=== PATIENT | female | born 1975 | race African-American/Black ===

== ENCOUNTER 2018-05-05 22:24 | Emergency (ER) | payer OTHER, MEDICAID, SELFPAY ==
--- NOTE | 2018-05-05 22:26 | ED.GENADULT ---
HPI - General Adult General Chief complaint: Recheck/Abnormal Lab/Rx Stated complaint: High Blood Pressre, Off Meds x 2Months,Headache Time Seen by Provider: 05/05/18 22:26 Source: patient Mode of arrival: ambulatory Limitations: no limitations History of Present Illness HPI narrative: 42-year-old female with history of diabetes on insulin also hypertension here for evaluation because she has been out of her hypertension medicines for 2 months. She states that she had a change in her primary doctor and has a scheduled appointment in 3 weeks however has not had her medicines in 2 months. She does have enough insulin however does not have a hydrochlorothiazide and lisinopril. She states that when her blood pressure gets elevated she has a headache and vision changes. She states that this has been going on for some time now. Just states the 1 her blood pressure gets elevated she has chest pain. She is not having any post symptoms currently. She is here for a medication refill. Related Data Home Medications Medication Instructions Recorded Confirmed HYDROCHLOROTHIAZIDE (#ESIDRIX) 25 mg PO Q DAY #0 06/04/11 insulin aspart U-100 [Novolog 0 unit SQ QIDACHS #0 units 06/29/13 Flexpen U-100 Insulin] insulin glargine [Lantus Solostar 0 unit SQ QDAY #3 ml 06/29/13 U-100 Insulin] Previous Rx's Medication Instructions Recorded tramadol 50 mg PO Q6HP PRN #30 tab 04/14/16 rizatriptan [Maxalt-M[employer]T [employer] OPERATOR] 5 mg PO Q2HP PRN #10 tab 05/31/17 tramadol 50 mg PO Q6HP PRN #20 tab 05/31/17 azithromycin [Zithromax] 250 mg PO SEE INSTRUCTIONS #6 tab 12/05/17 hydrochlorothiazide 25 mg PO DAILY #60 tab 05/05/18 lisinopril 20 mg PO DAILY #60 tab 05/05/18 Allergies Allergy/AdvReac Type Severity Reaction Status Date / Time hydrocodone [HYDROCODONE] Allergy Mild ITCHING Verified 05/05/18 22:44 Review of Systems Constitutional Denies fever(s) and Reports headache(s) Eyes Comments: Blurry vision ENT Ears, Nose, Mouth, and Throat: Denies vertigo and Reports headache(s) Cardiovascular Reports chest pain, Denies syncope, Denies pedal edema, Denies palpitations and Denies dyspnea Respiratory Denies dyspnea Gastrointestinal Gastrointestinal: Denies abdominal pain, Denies constipation, Denies nausea and Denies vomiting Genitourinary Denies dysuria Integumentary/Breasts Denies pruritus and Denies rash Neurologic Denies confusion, Denies vertigo, Denies syncope and Reports headache(s) Psychiatric Denies confusion Endocrine Denies palpitations [facility] Medical History Diabetes (Acute) Hypertension (Acute) Surgical History No pertinent past surgical history (Acute) Social History Smoking Status: Never smoker Exam Initial Vital Signs Initial Vital Signs: Vital Signs Temperature 98.6 F 05/05/18 22:40 Pulse Rate 82 05/05/18 22:40 Respiratory Rate 15 05/05/18 22:40 Blood Pressure 150/84 H 05/05/18 22:40 Pulse Oximetry 100 05/05/18 22:40 Const General: cooperative, healthy appearing, comfortable, well developed, well groomed and No acute distress Orientation: alert, awake and oriented x3 HENMT Head: normal to inspection and normocephalic Resp Effort & Inspection: normal respiratory effort Cardio Rate: regular rate Skin Lesions: no lesions Rashes: no rashes Neuro General: alert, awake and oriented x3 Cognition: normal cognition Speech: speech normal Gait: normal gait Extrem General: normal to inspection Psych Appearance: grossly normal and well kempt Course Orders Ordered: Discontinued Medications Hydrochlorothiazide (Hydrochlorothiazide) 25 mg PO NOW ONE Stop: 05/05/18 23:00 Lisinopril (Zestril) 20 mg PO NOW ONE Stop: 05/05/18 23:00 Vital Signs - 8 hr 05/05/18 22:40 Temperature 98.6 F Pulse Rate 82 Respiratory Rate 15 Blood Pressure 150/84 H Pulse Oximetry 100 Medical Decision Making [facility] Narrative Medical decision making narrative: Patient is currently asymptomatic. Will refill her hydrochlorothiazide and lisinopril. She was instructed she did need to keep her scheduled follow-up appointment with her primary doctor in 3 weeks. She was given return precautions. She expressed understanding and agreement with plan. Discharge Plan Departure Patient Disposition: Home Clinical Impression: Hypertension Instructions: Essential Hypertension Activity Restrictions/Additional Instructions: Take your medication as directed. Continue to take your blood sugar and use your insulin as directed. Keep all of your scheduled medical appointments. Return to the emergency department for any new or worsening symptoms. Prescriptions: New lisinopril 20 mg tablet 20 mg PO DAILY Qty: 60 RF: 0 hydrochlorothiazide 25 mg tablet 25 mg PO DAILY Qty: 60 RF: 0 No Action HYDROCHLOROTHIAZIDE (#ESIDRIX) 25 mg PO Q DAY Qty: 0 RF: 0 insulin aspart U-100 [Novolog Flexpen U-100 Insulin] 100 UNIT/1 ML insulin pen SQ QIDACHS Qty: 0 RF: 0 insulin glargine [Lantus Solostar U-100 Insulin] 100 UNIT/1 ML insulin pen SQ QDAY Qty: 3 RF: 0 tramadol 50 MG tablet 50 mg PO Q6HP PRNQty: 30 RF: 0 tramadol 50 MG tablet 50 mg PO Q6HP PRNQty: 20 RF: 0 rizatriptan [Maxalt-M[employer]AG OPERATOR] 5 MG tablet,disintegrating 5 mg PO Q2HP PRNQty: 10 RF: 0 azithromycin [Zithromax] 250 MG tablet 250 mg PO SEE INSTRUCTIONS Qty: 6 RF: 0
[2018-05-05 22:40] VITALS: BP 150/84; PULSE 82; RESP 15; TEMP 37; O2SAT 100; BMI 35.1
[2018-05-05 23:45] VITALS: BP 150/100; PULSE 87
[2018-05-05] MEDS: LISINOPRIL 20 MG TABLET PO (23:45)
[2018-05-05] MEDS: hydroCHLOROthiazide 25 MG TABLET PO (23:45)
[2018-05-05 23:59] VITALS: BP 158/100; PULSE 89; RESP 15; TEMP 36.8; O2SAT 98
== END 2018-05-06 | disposition home or self-care (01) ==
PROVIDERS: Emergency Provider Emergency Medicine; Family Provider Physician Assistant Medical; PCP Physician Assistant Medical
DX: I10 Essential (primary) hypertension (principal)
CPT/HCPCS: 99282; 99283

== ENCOUNTER 2018-07-05 10:03 | Emergency (ER) | payer OTHER, MEDICAID, SELFPAY ==
[2018-07-05 10:19] VITALS: BP 157/89; PULSE 66; RESP 18; TEMP 36.6; O2SAT 100; BMI 31.0
--- NOTE | 2018-07-05 10:32 | ED.BACK ---
HPI - Back Pain/Injury General Chief Complaint: Back Pain/Injury Stated Complaint: SWOLLEN, BACK SIDE PAIN Time Seen by Provider: 07/05/18 10:16 Source: patient Mode of arrival: ambulatory Limitations: no limitations History of Present Illness HPI Narrative: Patient is a 43-year-old female with a history of hypertension who I evaluated here in the emergency department in the past. She states that after her last visit here she did seek a primary care doctor. She states she filled out all the paperwork and they informed her that they were not taking any new patients. She states she has not been on her hydrochlorothiazide for the past 4 days. She states that for the past day or so she has had bilateral lower back pain no loss of bowel or bladder. No rashes. No urinary symptoms. She also states she had lower extremity swelling. She also states that it was noticed that she had swelling around her eyes this morning. She states that it feels like her blood pressure is elevated. She has been taking her insulin. Related Data Home Medications Medication Instructions Recorded Confirmed HYDROCHLOROTHIAZIDE (#ESIDRIX) 25 mg PO Q DAY #0 06/04/11 insulin aspart U-100 [Novolog 0 unit SQ QIDACHS #0 units 06/29/13 Flexpen U-100 Insulin] insulin glargine [Lantus Solostar 0 unit SQ QDAY #3 ml 06/29/13 U-100 Insulin] Previous Rx's Medication Instructions Recorded tramadol 50 mg PO Q6HP PRN #30 tab 04/14/16 rizatriptan [Maxalt-SURVEY SUPERINTENDENT] 5 mg PO Q2HP PRN #10 tab 05/31/17 tramadol 50 mg PO Q6HP PRN #20 tab 05/31/17 azithromycin [Zithromax] 250 mg PO SEE INSTRUCTIONS #6 tab 12/05/17 hydrochlorothiazide 25 mg PO DAILY #60 tab 05/05/18 lisinopril 20 mg PO DAILY #60 tab 05/05/18 hydrochlorothiazide 25 mg PO DAILY #90 tab 07/05/18 lisinopril 20 mg PO DAILY #90 tab 07/05/18 Allergies Allergy/AdvReac Type Severity Reaction Status Date / Time hydrocodone [HYDROCODONE] Allergy Mild ITCHING Verified 07/05/18 10:19 Review of Systems Constitutional Denies fatigue, Denies fever(s) and Reports headache(s) Eyes Denies loss of vision ENT Ears, Nose, Mouth, and Throat: Denies vertigo, Denies dizziness and Reports headache(s) Cardiovascular Denies chest pain, Denies syncope and Denies dyspnea Respiratory Denies dyspnea Gastrointestinal Gastrointestinal: Denies abdominal pain, Denies nausea and Denies vomiting Musculoskeletal Reports back pain, Denies myalgias and Denies arthralgias Integumentary/Breasts Denies lesions and Denies rash Neurologic Denies vertigo, Denies dizziness, Denies syncope, Reports headache(s) and Denies loss of vision Endocrine Denies fatigue Hematologic/Lymphatic Denies easy bleeding and Denies easy bruising [facility] Medical History Diabetes (Acute) Hypertension (Acute) Surgical History No pertinent past surgical history (Acute) Social History Smoking Status: Never smoker Exam Initial Vital Signs Initial Vital Signs: Vital Signs Temperature 98 F 07/05/18 10:19 Pulse Rate 66 07/05/18 10:19 Respiratory Rate 18 07/05/18 10:19 Blood Pressure 157/89 H 07/05/18 10:19 Pulse Oximetry 100 07/05/18 10:19 Const General: cooperative, healthy appearing, comfortable, well developed, well groomed and No acute distress Orientation: alert, awake and oriented x3 HENMT Head: normal to inspection and normocephalic Resp Effort & Inspection: normal respiratory effort Auscultation: clear to auscultation bilaterally Cardio Rate: regular rate Rhythm: regular rhythm GI Inspection: non-distended Palpation: soft and No firm Back/Spine/Pelvis Back: back tenderness and No CVA tenderness Skin Lesions: no lesions Rashes: no rashes Neuro General: alert, awake and oriented x3 Extrem General: normal to inspection and capillary refill normal Psych Appearance: grossly normal and well kempt Course Vital Signs - 8 hr 07/05/18 10:19 Temperature 98 F Pulse Rate 66 Respiratory Rate 18 Blood Pressure 157/89 H Pulse Oximetry 100 MDM - Back Pain/Injury MDM Narrative Medical decision making narrative: Patient has no red flag symptoms concerning for cauda equina. I do suspect that her lower extremity swelling is due to the fact that she has not been on her hydrochlorothiazide for the past 4 days. No signs of urinary tract infection. No fevers. Will refill her medications. Will hold on further workup for now. She was given information about local groups in the area that are accepting new patients. She was given return precautions. She expressed understanding and agreement with plan. Discharge Plan Departure Patient Disposition: Home Clinical Impression: Lower back pain, Hypertension, Edema Instructions: DI for Dependent Edema, Activity May Be Better then Rest for Low Back Pain Recovery Activity Restrictions/Additional Instructions: Would recommend that you contact the primary doctor's here in this area to establish care. If her symptoms worsen, change redevelop any new symptoms please return to the emergency department. Prescriptions: New lisinopril 20 mg tablet 20 mg PO DAILY Qty: 90 RF: 0 hydrochlorothiazide 25 mg tablet 25 mg PO DAILY Qty: 90 RF: 0 No Action HYDROCHLOROTHIAZIDE (#ESIDRIX) 25 mg PO Q DAY Qty: 0 RF: 0 insulin aspart U-100 [Novolog Flexpen U-100 Insulin] 100 UNIT/1 ML insulin pen SQ QIDACHS Qty: 0 RF: 0 insulin glargine [Lantus Solostar U-100 Insulin] 100 UNIT/1 ML insulin pen SQ QDAY Qty: 3 RF: 0 tramadol 50 MG tablet 50 mg PO Q6HP PRNQty: 30 RF: 0 tramadol 50 MG tablet 50 mg PO Q6HP PRNQty: 20 RF: 0 rizatriptan [Maxalt-SURVEY SUPERINTENDENT] 5 MG tablet,disintegrating 5 mg PO Q2HP PRNQty: 10 RF: 0 azithromycin [Zithromax] 250 MG tablet 250 mg PO SEE INSTRUCTIONS Qty: 6 RF: 0 lisinopril 20 mg tablet 20 mg PO DAILY Qty: 60 RF: 0 hydrochlorothiazide 25 mg tablet 25 mg PO DAILY Qty: 60 RF: 0
[2018-07-05 11:10] VITALS: BP 171/94
[2018-07-05 11:51] VITALS: BP 171/94; PULSE 66; RESP 20; O2SAT 100
== END 2018-07-05 11:30 | disposition home or self-care (01) ==
PROVIDERS: Emergency Provider Emergency Medicine; Family Provider Physician Assistant Medical; PCP Physician Assistant Medical
DX: I10 Essential (primary) hypertension (principal); M54.9 Dorsalgia, unspecified; R60.9 Edema, unspecified
CPT/HCPCS: 99282

== ENCOUNTER 2018-10-25 15:27 | Emergency (ER) | payer OTHER, MEDICAID, SELFPAY ==
[2018-10-25 15:33] VITALS: BP 176/101; PULSE 103; RESP 20; TEMP 37.8; O2SAT 100; BMI 31.4
[2018-10-25 15:50] LABS: Appearance Urine UA CLOUDY; Bilirubin Urine UA NEGATIVE (NEGATIVE); Color Urine UA YELLOW; Glucose Urine UA NEGATIVE (Negative); Ketones Urine UA NEGATIVE (NEGATIVE); Leukocyte Esterase Urine UA TRACE (NEGATIVE); Nitrite Urine UA NEGATIVE (Negative); Occult Blood Urine UA 3+ (Negative); Protein Urine UA 2+ (Negative); Urobilinogen Urine UA 0.2 E.U./dL (0.2); pH Urine UA 6.5 (4.5-8.0)
[2018-10-25 16:04] LABS: Amorphous Sediment Urine 1+; Bacteria Urine Few (2-10); RBC Urine 30-100/HPF (0-5/HPF); Squamous Epithelial Cell Urine 1-5 /HPF; WBC Urine 1-5/HPF (0-5/HPF)
[2018-10-25 16:05] LABS: Culture Indicated Urine Specimen Cultured
[2018-10-25] MEDS: ONDANSETRON 4 MG/2 ML INJ IV (16:05)
[2018-10-25] MEDS: KETOROLAC 60 MG/2 ML VIAL 30 MG IV (16:19)
[2018-10-25] MEDS: SODIUM CHLORIDE 0.9% 1,000 ML 1000 ML IV (16:19)
[2018-10-25 16:23] LABS: Add Manual Diff / Slide Review NO; Basophils Absolute Auto 100 /uL (0-100); Basophils Percent Auto 0.8 % (0-2); Eosinophils Absolute Auto 0 /uL (0-450); Eosinophils Percent Auto 0.4 % (2-4); Hematocrit 26.3 % (36-46); Hemoglobin 8.3 g/dL (12.0-16.0); Lymphocytes Absolute Auto 1700 /uL (1100-4500); Lymphocytes Percent Auto 13.8 % (25-40); Mean Corpuscular HGB Conc 31.5 % (30-36); Mean Corpuscular Hemoglobin 22.3 PG (26-34); Mean Corpuscular Volume 70.7 fL (80-100); Monocytes Absolute Auto 600 /uL (0-900); Monocytes Percent Auto 5.2 % (3-14); Neutrophils Absolute Auto 9700 /uL (1500-7000); Neutrophils Percent Auto 79.8 % (50-75); Platelet Count 290 X10^3/uL (150-400); Red Blood Cell Count 3.72 X10^6/uL (4.0-5.2); Red Cell Distribution Width 17.6 % (11.6-14.8); White Blood Cell Count 12.1 X10^3/uL (4.5-11.0)
[2018-10-25 16:31] LABS: Alanine Aminotransferase 18 IU/L (9-52); Albumin 4.3 g/dL (3.5-5.0); Albumin Globulin Ratio 1.2 (1.0-2.8); Alkaline Phosphatase 67 U/L (38-126); Aspartate Aminotransferase 22 IU/L (14-36); BUN Creatinine Ratio 11.8 (6-22); Bilirubin Total 0.5 mg/dL (0.2-1.3); Blood Urea Nitrogen 13 mg/dL (7-17); Calcium 9.4 mg/dL (8.4-10.2); Carbon Dioxide 25 mmol/L (22-32); Chloride 104 mmol/L (98-107); Estimated Glomerular Filt Rate 54.2 mL/min (>60); Globulin 3.7 g/dL (1.7-4.1); Glucose 109 mg/dL (70-100); HEMOLYSIS 17 (0-50); Potassium 4.2 mmol/L (3.4-5.1); Sodium 139 mmol/L (137-145)
[2018-10-25] MEDS: CEFTRIAXONE 1 GM/50 ML FROZ.PIGGY IV (17:04)
--- NOTE | 2018-10-25 17:45 | ED_ITS ---
HPI - Abdominal Pain General Chief Complaint: Abdominal Pain Stated Complaint: KIDNEY PAIN Time Seen by Provider: 10/25/18 15:39 Source: patient and family Mode of arrival: ambulatory Limitations: no limitations History of Present Illness HPI narrative: 43-year-old female, nonsmoker with history of hypertension diabetes presents with sudden onset left flank pain with radiation into her left abdomen. She has had vomiting associated with significant pain as well as hematuria. She does have a history of kidney stones and states this feels similar. She denies fever or shaking chills. She denies runny nose, sore throat or cough. She has episodes of significant pain that come and go without any obvious provocation or palliation. MD complaint: flank pain Onset (ago): day(s) Pain Consistency: constant Quality: stabbing Radiation: LLQ Relieving factors: nothing Exacerbating factors: nothing Associated symptoms: nausea and vomiting Related Data Home Medications Medication Instructions Recorded Confirmed insulin aspart U-100 [Novolog 0 unit SQ QIDACHS #0 units 06/29/13 07/05/18 Flexpen U-100 Insulin] insulin glargine [Lantus Solostar 0 unit SQ QDAY #3 ml 06/29/13 07/05/18 U-100 Insulin] rizatriptan [Maxalt-DRAFTER DIRECTIONAL SURVEY] 5 mg PO Q2HP PRN 07/05/18 07/05/18 Previous Rx's Medication Instructions Recorded hydrochlorothiazide 25 mg PO DAILY #90 tab 07/05/18 lisinopril 20 mg PO DAILY #90 tab 07/05/18 cephalexin [Keflex] 500 mg PO QID 14 Days #56 cap 10/25/18 ondansetron 4 mg PO TID-QID PRN #10 tab 10/25/18 oxycodone 5 mg PO Q4-6H PRN #10 tab 10/25/18 tamsulosin [Flomax] 0.4 mg PO DAILY #10 cap 10/25/18 Allergies Allergy/AdvReac Type Severity Reaction Status Date / Time hydrocodone [HYDROCODONE] Allergy Mild ITCHING Verified 10/25/18 15:33 Review of Systems Constitutional Denies chills, Denies fever(s), Denies lethargy and Denies weakness Eyes Denies change in vision, Denies eye discharge, Denies irritation and Denies loss of vision ENT Ears, Nose, Mouth, and Throat: Denies change in voice, Denies neck pain and Denies sore throat Cardiovascular Denies chest pain, Denies irregular heart rhythm, Denies lightheadedness, Denies palpitations, Denies dyspnea, Denies dyspnea on exertion and Denies orthopnea Respiratory Denies cough, Denies dyspnea, Denies dyspnea on exertion and Denies wheezing Gastrointestinal Gastrointestinal: Reports abdominal pain, Denies change in bowel habits, Denies diarrhea, Denies nausea and Denies vomiting Genitourinary Reports hematuria, Denies flank pain, Denies urinary incontinence and Denies urinary urgency Musculoskeletal Denies neck pain Integumentary/Breasts Denies pruritus, Denies erythema, Denies rash and Denies wounds Neurologic Denies confusion, Denies loss of vision and Denies weakness Psychiatric Denies anxiety, Denies confusion, Denies depression, Denies homicidal ideation and Denies suicidal ideation Endocrine Denies palpitations Hematologic/Lymphatic Denies easy bruising Allergic/Immunologic Denies wheezing [facility] Medical History Diabetes (Acute) Hypertension (Acute) Surgical History No pertinent past surgical history (Acute) Social History Smoking Status: Never smoker Social History Smoking Status: Never smoker Exam Narrative Exam Narrative: GENERAL: 43-year-old female, obviously uncomfortable HEAD: Atraumatic. Normocephalic. No temporal or scalp tenderness. EYES: Pupils equal round and reactive. Extraocular motions intact. No scleral icterus. No injection or drainage. ENT: Nose without bleeding, purulent drainage or septal hematoma. Throat without erythema, tonsillar hypertrophy or exudate. Uvula midline. Airway patent. NECK: Trachea midline. No JVD or lymphadenopathy. Supple, nontender, no meningeal signs. CARDIOVASCULAR: Regular rate and rhythm without murmurs, gallops, or rubs. RESPIRATORY: Clear to auscultation. Breath sounds equal bilaterally. No wheezes , rales, or rhonchi. GASTROINTESTINAL: Abdomen soft, non-tender, nondistended. No hepato-splenomegaly , or palpable masses. No guarding. EXTREMITIES: No clubbing, cyanosis, or edema. No joint tenderness, effusion, or edema noted. BACK: Nontender without deformity or crepitance. No flank tenderness. NEURO: AOx3. SKIN: No rash or erythema. Initial Vital Signs Initial Vital Signs: Vital Signs Temperature 100.1 F H 10/25/18 15:33 Pulse Rate 103 H 10/25/18 15:33 Respiratory Rate 20 10/25/18 15:33 Blood Pressure 176/101 H 10/25/18 15:33 Pulse Oximetry 100 10/25/18 15:33 Course Orders Ordered: ED Orders 10/25/18 15:47 Urinalysis and Microscopic Stat Urine Culture Stat 10/25/18 16:10 Complete Blood Count AUTO DIFF Stat Comprehensive Metabolic Panel Stat Discontinued Medications Sodium Chloride (Normal Saline 0.9%) 1,000 mls @ 1,000 mls/hr IV BOLUS ONE Stop: 10/25/18 17:17 Last Infusion: 10/25/18 17:46 Dose: 0 mls/hr Admin: 10/25/18 16:19 Dose: 1,000 mls/hr Ceftriaxone Sodium/Dextrose (Rocephin) 1 gm in 50 mls @ 100 mls/hr IV NOW ONE Stop: 10/25/18 17:26 Last Infusion: 10/25/18 17:45 Dose: 0 mls/hr Admin: 10/25/18 17:04 Dose: 100 mls/hr Ketorolac Tromethamine (Toradol) 30 mg IV NOW ONE Stop: 10/25/18 16:19 Last Admin: 10/25/18 16:19 Dose: 30 mg Ondansetron HCl (Zofran) 4 mg IV NOW ONE Stop: 10/25/18 15:41 Last Admin: 10/25/18 16:05 Dose: 4 mg Oxycodone/Acetaminophen (Percocet 5/325) 1 tab PO NOW ONE Stop: 10/25/18 17:49 Last Admin: 10/25/18 17:51 Dose: 1 tab Reevaluation(s) Reevaluation #1: Patient feeling better after above-stated therapies Vital Signs - 8 hr 10/25/18 15:33 10/25/18 18:25 Temperature 100.1 F H Pulse Rate 103 H 88 Respiratory Rate 20 16 Blood Pressure 176/101 H Blood Pressure [Right Arm] 181/109 H Pulse Oximetry 100 100 MDM - Abdominal Pain Differential Diagnosis Differential diagnosis: Likely abdominal pain, calculus of kidney, constipation , endometriosis, gastroenteritis, pancreatitis and small bowel obstruction Medical Records Attestation: I reviewed the patient's medical records. Lab Data Attestation: I reviewed the patient's lab results. Result diagrams: 10/25/18 16:10 10/25/18 16:10 Lab Results 10/25/18 10/25/18 10/25/18 Range/Units 15:47 16:10 16:10 WBC 12.1 H (4.5-11.0) X10^3/uL RBC 3.72 L (4.0-5.2) X10^6/uL Hgb 8.3 L (12.0-16.0) g/dL Hct 26.3 L (36-46) % MCV 70.7 L (80-100) fL MCH 22.3 L (26-34) PG MCHC 31.5 (30-36) % RDW 17.6 H (11.6-14.8) % Plt Count 290 (150-400) X10^3/uL Neut % (Auto) 79.8 H (50-75) % Lymph % (Auto) 13.8 L (25-40) % [place] % (Auto) 5.2 (3-14) % Eos % (Auto) 0.4 L (2-4) % Baso % (Auto) 0.8 (0-2) % Neut # (Auto) 9700 H (5197-3102) /uL Lymph # (Auto) 1700 (4408-5531) /uL [place] # (Auto) 600 (0-900) /uL Eos # (Auto) 0 (0-450) /uL Baso # (Auto) 100 (0-100) /uL Sodium 139 (137-145) mmol/L Potassium 4.2 (3.4-5.1) mmol/L Chloride 104 (98-107) mmol/L Carbon Dioxide 25 (22-32) mmol/L BUN 13 (7-17) mg/dL Creatinine 1.10 H (0.52-1.04) mg/dL Estimated GFR 54.2 L (>60) mL/min BUN/Creatinine Ratio 11.8 (6-22) Glucose 109 H (70-100) mg/dL Calcium 9.4 (8.4-10.2) mg/dL Total Bilirubin 0.5 (0.2-1.3) mg/dL AST 22 (14-36) IU/L ALT 18 (9-52) IU/L Alkaline Phosphatase 67 (38-126) U/L Total Protein 8.0 (6.3-8.2) g/dL Albumin 4.3 (3.5-5.0) g/dL Globulin 3.7 (1.7-4.1) g/dL Albumin/Globulin Ratio 1.2 (1.0-2.8) Urine Color Yellow Urine Appearance Cloudy Urine pH 6.5 (4.5-8.0) Ur Specific [place] 1.010 (1.000-1.035) Urine Protein 2+ H (Negative) Urine Glucose (UA) Negative (Negative) g/dL Urine Ketones Negative (NEGATIVE) Urine Occult Blood 3+ H (Negative) Urine Nitrate Negative (Negative) Urine Bilirubin Negative (NEGATIVE) Urine Urobilinogen 0.2 (0.2) E.U./dL Ur Leukocyte Esterase Trace H (NEGATIVE) Urine RBC 30-100/hpf H (0-5/HPF) Urine WBC 1-5/hpf (0-5/HPF) Ur Squamous Epith Cells 1-5 /hpf Amorphous Sediment 1+ Urine Bacteria Few (2-10) H (None) Ur Culture Indicated? Specimen cultured MDM Narrative Medical decision making narrative: Multiple etiologies for patient's symptoms considered including: [Ureterolithiasis, pyelonephritis, versus other] Patient's symptoms improved or duration of stay with above-stated therapies. Findings and discharge diagnosis discussed with patient/family followed by verbalization of understanding Return precautions discussed with patient/family whom verbalize understanding. Discharge Plan Departure Patient Disposition: Home Clinical Impression: Ureterolithiasis Instructions: DI for Kidney Stones Activity Restrictions/Additional Instructions: *You have been diagnosed with [left flank pain, hematuria, likely kidney stone with possible UTI ] *What to do: *Take medications as directed *Follow up with your primary care provider in 2-3 days, call for an appointment. Let them know you were seen in the Emergency Department and that we ask that you be seen in follow up *Return to ER if you should have any new, worsening or concerning symptoms , such as [increased fever, shaking chills, increasing pain, persistent vomiting or other bothersome symptoms ] Prescriptions: New cephalexin [Keflex] 500 mg capsule 500 mg PO QID 14 Days Qty: 56 RF: 0 tamsulosin [Flomax] 0.4 mg capsule 0.4 mg PO DAILY Qty: 10 RF: 0 ondansetron 4 mg tablet,disintegrating 4 mg PO TID-QID PRN (Reason: nausea and vomiting) Qty: 10 RF: 0 oxycodone 5 mg tablet 5 mg PO Q4-6H PRN (Reason: pain) Qty: 10 RF: 0 No Action insulin aspart U-100 [Novolog Flexpen U-100 Insulin] 100 UNIT/1 ML insulin pen SQ QIDACHS Qty: 0 RF: 0 insulin glargine [Lantus Solostar U-100 Insulin] 100 UNIT/1 ML insulin pen SQ QDAY Qty: 3 RF: 0 lisinopril 20 mg tablet 20 mg PO DAILY Qty: 90 RF: 0 hydrochlorothiazide 25 mg tablet 25 mg PO DAILY Qty: 90 RF: 0 rizatriptan [Maxalt-DRAFTER DIRECTIONAL SURVEY] 5 MG tablet,disintegrating 5 mg PO Q2HP PRN (Reason: Migraine Headache) RF: 0
[2018-10-25] MEDS: OXYCODONE/ACETAMINOPHEN 5/325 TABLET 1 TAB PO (17:51)
[2018-10-25 18:25] VITALS: BP 181/109; PULSE 88; RESP 16; O2SAT 100
[2018-10-25 18:59] VITALS: BP 172/98; PULSE 85; RESP 16; O2SAT 99
== END 2018-10-25 19:04 | disposition home or self-care (01) ==
PROVIDERS: Emergency Provider Emergency Medicine; Family Provider Physician Assistant Medical; PCP Physician Assistant Medical
DX: N20.1 Calculus of ureter (principal)
CPT/HCPCS: 36591; 80053; 81001; 81015; 85025; 87086; 96361; 96365; 96375; 99283; 99284; J1885; J2405

== ENCOUNTER 2019-05-29 19:21 | Emergency (ER) | payer OTHER, MEDICAID, SELFPAY ==
[2019-05-29 19:26] VITALS: BP 129/79; PULSE 105; RESP 20; TEMP 36.9; O2SAT 100
[2019-05-29 20:12] LABS: Add Manual Diff / Slide Review NO; Basophils Absolute Auto 100 /uL (0-100); Basophils Percent Auto 0.9 % (0-2); Eosinophils Absolute Auto 100 /uL (0-450); Eosinophils Percent Auto 1.1 % (2-4); Hematocrit 25.9 % (36-46); Hemoglobin 8.1 g/dL (12.0-16.0); Lymphocytes Absolute Auto 2700 /uL (1100-4500); Lymphocytes Percent Auto 38.5 % (25-40); Mean Corpuscular HGB Conc 31.1 % (30-36); Mean Corpuscular Hemoglobin 22.4 PG (26-34); Mean Corpuscular Volume 71.9 fL (80-100); Monocytes Absolute Auto 400 /uL (0-900); Neutrophils Absolute Auto 3700 /uL (1500-7000); Neutrophils Percent Auto 53.5 % (50-75); Platelet Count 288 X10^3/uL (150-400); Red Cell Distribution Width 18.2 % (11.6-14.8)
--- NOTE | 2019-05-29 21:09 | ED_ITS ---
HPI - Weakness General Chief complaint: Weakness Stated complaint: WEAKNESS ANEMIA JAUNDICE Time Seen by Provider: 05/29/19 21:07 Source: patient and family Mode of arrival: ambulatory Limitations: no limitations History of Present Illness HPI Narrative: A 44-year-old female comes to the emergency department with co mplaint of weakness and history of anemia. Patient states they have not found the source. She has been following with Hematology. She has been started on iron 3 times daily but only been able to take it twice daily because she finds it nauseating. She is taking medications to help with constipation in this is been useful. She has not had any syncope but has felt lightheaded on occasion. She denies any chest pressure or shortness of breath. She has had some nausea but no vomiting. She states she felt a little yellow. Patient denies any issues with bowel movements, no black or bloody stools. She did start her period today and had some light spotting. She has not noticed any changes with urination. Patient is not have any swelling in her extremities. She did not want extensive workup today and requested just to CBC. Related Data Previous Rx's Medication Instructions Recorded glucometer #1 ea 11/17/18 lancets #360 each 11/17/18 miscellaneous medical supply #1 each 11/17/18 test strips #360 each 11/17/18 glucometer #1 ea 04/25/19 hydrochlorothiazide 25 mg tablet 25 mg PO DAILY #90 tab 04/25/19 lisinopril 40 mg tablet 40 mg PO DAILY #90 tab 04/25/19 ondansetron 4 mg disintegrating 4 mg PO TID-QID PRN #10 tab 04/25/19 tablet sennosides 8.6 mg tablet 17.2 mg PO DAILY #90 tab 04/25/19 ferrous gluconate 324 mg PO DAILY #30 tab 05/17/19 Allergies Allergy/AdvReac Type Severity Reaction Status Date / Time hydrocodone [HYDROCODONE] Allergy Mild ITCHING Verified 04/25/19 09:33 Review of Systems Review of Systems ROS Unobtainable: All systems reviewed & are unremarkable except as noted in HPI and below PFSH Medical History Anemia (Chronic) Chronic back pain (Chronic) Diabetes (Chronic) Eczema (Chronic) Headache (Chronic) Hypertension (Chronic) Kidney disease (Chronic) Kidney stones (Chronic) Migraines (Chronic) Sickle cell anemia (Chronic) Surgical History Anesthesia (Resolved) History of section (Resolved) History of cholecystectomy (Resolved) History of foot surgery (Resolved) No pertinent past surgical history (Acute) Family History (Updated 12/24/18 @ 20:11 by Shira Unger) Mother Cancer Heart disease Hypertension Stroke Grandfather Diabetes mellitus Heart disease Hypertension Hyperlipidemia Grandmother Stroke Family/Other Diabetes mellitus Hypertension Kidney disease Social History Smoking Status: Never smoker second hand exposure: No alcohol intake: current (wine, once and awhile) substance use type: does not use Social History Smoking Status: Never smoker second hand exposure: No alcohol intake: current (wine, once and awhile) substance use type: does not use Exam Narrative Exam Narrative: GENERAL: Alert and oriented x three, well-nourished, well- appearing female in no acute distress. HEENT: Head normocephalic, atraumatic, EOMI, pupils reactive, face symmetric, conjunctivae are pink, moist mucous membranes. No jaundice appreciated. NECK: Supple, full range of motion CARDIOVASCULAR: Regular rate and rhythm without murmurs, rubs or gallops. RESPIRATORY: Breath sounds equal bilaterally, no wheezes rales or rhonchi. ABDOMEN: Soft, nontender. Normoactive bowel sounds all 4 quadrants. No guarding or rebound, rigidity, no mass : No CVA tenderness EXTREMITIES: Normal range of motion, no clubbing or edema. Neurovascularly intact NEUROLOGICAL: Cranial nerves II through XII grossly intact. Moving all extremities SKIN: Warm, dry, no petechiae, no rashes or lesions. Initial Vital Signs Initial Vital Signs: Vital Signs Temperature 98.4 F 05/29/19 19:26 Pulse Rate 105 H 05/29/19 19:26 Respiratory Rate 20 05/29/19 19:26 Blood Pressure 129/79 05/29/19 19:26 Pulse Oximetry 100 05/29/19 19:26 Course Orders Ordered: ED Orders 05/29/19 20:06 CBC Auto Diff [Complete Blood Count AUTO DIFF] Stat Vital Signs Vital signs: Vital Signs - 8 hr 05/29/19 19:26 Temperature 98.4 F Pulse Rate 105 H Respiratory Rate 20 Blood Pressure 129/79 Pulse Oximetry 100 MDM - Weakness Lab Data Attestation: I reviewed the patient's lab results. Result diagrams: 05/29/19 20:06 Labs: Lab Results 05/29/19 Range/Units 20:06 WBC 7.0 (4.5-11.0) X10^3/uL RBC 3.60 L (4.0-5.2) X10^6/uL Hgb 8.1 L (12.0-16.0) g/dL Hct 25.9 L (36-46) % MCV 71.9 L (80-100) fL MCH 22.4 L (26-34) PG MCHC 31.1 (30-36) % RDW 18.2 H (11.6-14.8) % Plt Count 288 (150-400) X10^3/uL Neut % (Auto) 53.5 (50-75) % Lymph % (Auto) 38.5 (25-40) % [place] % (Auto) 6.0 (3-14) % Eos % (Auto) 1.1 L (2-4) % Baso % (Auto) 0.9 (0-2) % Neut # (Auto) 3700 (5218-2381) /uL Lymph # (Auto) 2700 (7340-1806) /uL [place] # (Auto) 400 (0-900) /uL Eos # (Auto) 100 (0-450) /uL Baso # (Auto) 100 (0-100) /uL [facility] Narrative Medical decision making narrative: Patient had CBC today which shows anemia with a hemoglobin of 8.1, patient's range recently between 8.3 and 7.9, a white count is 7 with platelets of 288 which are stable. Patient has a microcytic anemia. Patient did not wish to have any additional blood work. We discussed that if she noticed she was jaundiced or having a worsening abdominal issues we have not ruled out any issues with her lab work today. She is aware of this and comfortable with following up with her primary. She is getting lab draws regularly and has close follow-up in place. She would like to return home at this time. She is able to ambulate without any issue. Discharge Plan Departure Patient Disposition: Home Clinical Impression: Anemia Instructions: Anemia Activity Restrictions/Additional Instructions: Follow-up with your primary care provider in the next several days. Call for an appointment. Continue home medications as prescribed. Return to the ER for fevers greater 100.4 F, lightheadedness, passing out, new weakness, numbness, persistent vomiting, black or bloody stools, increasing vaginal bleeding or other new or concerning symptoms. Prescriptions: No Action (DME) Blood Pressure Cuff misc See Dose Instructions .ROUTE .MEDSUPPLY Qty: 1 RF: 0 (DME) glucometer Qty: 1 RF: 0 (DME) lancets Qty: 360 RF: 1 (DME) test strips Qty: 360 RF: 0 lisinopril 40 mg tablet 40 mg PO DAILY Qty: 90 RF: 1 ondansetron 4 mg tablet,disintegrating 4 mg PO TID-QID PRN (Reason: nausea and vomiting) Qty: 10 RF: 0 sennosides [senna] 8.6 mg tablet 17.2 mg PO DAILY Qty: 90 RF: 1 (DME) glucometer Qty: 1 RF: 0 hydrochlorothiazide 25 mg tablet 25 mg PO DAILY Qty: 90 RF: 0 ferrous gluconate 324 mg (38 mg iron) Tablet 324 mg PO DAILY Qty: 30 RF: 3 Referrals: Oscar Morgan ARNP [Primary Care Provider] -
== END 2019-05-29 21:21 | disposition home or self-care (01) ==
PROVIDERS: Emergency Provider Emergency Medicine; PCP Nurse Practitioner Family
DX: D64.9 Anemia, unspecified (principal)
CPT/HCPCS: 36415; 85025; 99282; 99283

== ENCOUNTER → 2019-07-18 09:40 | Oncology outpatient (ONC) | payer OTHER, MEDICAID, SELFPAY ==
[2019-05-17 11:04] VITALS: BP 135/84; PULSE 75; RESP 18; TEMP 36.8; O2SAT 99
--- NOTE | 2019-05-17 12:05 | P.CONONC_ITS ---
History of Present Illness - Data of Consult Consult date: 05/17/19 Primary Care Provider: SHON Bass - Consult Narrative Narrative: Diagnosis: Iron deficiency anemia History of present illness: Katerin Salcedo is a 43 year old female who is referred for further evaluation of anemia. Patient reports that she has had a longstanding history of anemia dating back for many years. In the past, she had been taking oral iron. It caused some trouble with constipation and abdominal pain. It is not clear whether she responded or not but she eventuality quit. She is not taking any iron currently and has not taken it in the last several years. She has been requiring intermittent transfusions about once a year most recently in the spring of this year. She reports that her strength and energy level do improve after the transfusions, at least for a short time period She some heavy periods but denies any other unusual bleeding. She does note some fatigue and dyspnea on exertion but no chest pain or dizziness. She does have some chills but no fevers. She otherwise feels well and is without complaint today. Her past medical history is notable for hypertension. She has had a history of diabetes but has been under good control and her medications were recently stopped. Her current medications include lisinopril and hydrochlorothiazide. She does take an occasional laxative. Family history is notable for multiple family members with anemia. Social history: She does not smoke or drink. She grew up in [place]. She works as a caregiver. CC: Taj Cary MD Home Medications and Allergies Home Medications Medication Instructions Recorded Confirmed Type glucometer #1 ea 11/17/18 04/25/19 Rx lancets #360 each 11/17/18 04/25/19 Rx miscellaneous medical supply #1 each 11/17/18 04/25/19 Rx test strips #360 each 11/17/18 04/25/19 Rx glucometer #1 ea 04/25/19 Rx hydrochlorothiazide 25 mg tablet 25 mg PO DAILY #90 tab 04/25/19 05/17/19 Rx lisinopril 40 mg tablet 40 mg PO DAILY #90 tab 04/25/19 05/17/19 Rx ondansetron 4 mg disintegrating 4 mg PO TID-QID PRN #10 tab 04/25/19 05/17/19 Rx tablet sennosides 8.6 mg tablet 17.2 mg PO DAILY #90 tab 04/25/19 05/17/19 Rx ferrous gluconate 324 mg PO DAILY #30 tab 05/17/19 Rx Allergies Allergy/AdvReac Type Severity Reaction Status Date / Time hydrocodone [HYDROCODONE] Allergy Mild ITCHING Verified 04/25/19 09:33 Medical History - Medical, Surgical, Family History Medical History: Medical History (Last Updated 12/24/18 @ 19:35 by Shira Unger) Anemia Chronic back pain Diabetes Eczema Headache Hypertension Kidney disease Kidney stones Migraines Sickle cell anemia Surgical History: Surgical History (Last Updated 12/24/18 @ 19:35 by Shira Unger) Anesthesia History of section History of cholecystectomy History of foot surgery No pertinent past surgical history Family History: Family History (Last Reviewed 10/25/18 @ 18:45 by Shaggy Higgins DO) Mother Cancer Heart disease Hypertension Stroke Grandfather Diabetes mellitus Heart disease Hypertension Hyperlipidemia Grandmother Stroke Family/Other Diabetes mellitus Hypertension Kidney disease - Social History Smoking Status: Never smoker Review of Systems - Patient Self-Reported Symptoms SR eye issues: Vision changes SR Cardiovascular issues: Dizzy/lightheaded SR Gastrointestinal issues: Constipation, Abdominal pain SR Neuro issues: Headache, Difficulty balancing Constitutional: decreased exercise tolerance Ears, nose, mouth, throat: no vertigo, no lightheadedness, no epistaxis Cardiovascular: dyspnea on exertion, no chest pain Respiratory: no hemoptysis Gastrointestinal: no hematemesis Hematologic/Lymphatic: anemia, no enlarged lymph nodes Exam Vital signs: Vital Signs Temp Pulse Resp BP Pulse Ox 05/17/19 11:04 98.2 F 75 18 135/84 99 Intake and Output 05/16/19 05/17/19 05/17/19 23:59 07:59 15:59 Other: Weight 94.7 kg Patient Weight 05/17/19 23:59 Weight 94.7 kg - Constitutional positive no acute distress, positive average body habitus - Routine HEENT Exam Head: Present: normocephalic, atraumatic Eye: Present: EOMI, PERRL. Absent: conjunctival icterus, scleral injection ENT: Present: mucous membranes moist, oropharynx clear - Routine Neck Exam Present: supple. Absent: lymphadenopathy, thyromegaly - Routine Chest/Breast/Axilla Exam Axillae: Absent: lymphadenopathy - Routine Respiratory Exam Present: Clear to auscultation bilaterally. Absent: rales, wheezes - Routine Cardiovascular Exam Present: RRR, S1, S2. Absent: murmur - Routine Abdominal Exam Present: soft, normoactive bowel sounds. Absent: tenderness, organomegaly, mass - Routine Extremities Exam Absent: cyanosis, clubbing, edema - Routine Back/Spine Exam Back/Spine: Absent: vertebral tenderness - Routine Skin Exam Present: intact. Absent: petechiae, rash - Routine Neurological Exam Present: alert, oriented X3 - Routine Psychiatric Exam Present: normal affect, normal thought process Results - Labs On May 11, her white count was 4.6 hemoglobin 7.7 hematocrit 25.8 with an MCV of 75 platelets were 406,000. Her ferritin was 8. B12 was 454 and folate 4.8. Iron was 20 with a TIBC of 412 and a sat of 5%. - Imaging Additional studies: Procedures Injection of tranquilizer (02/23/14) Injection or infusion of other therapeutic or prophylactic substance (08/13/14) Assessment and Plan (1) Anemia Onset Date: Unknown Current visit: No Status: Acute 43-year-old woman with a history of iron deficiency anemia. It appears that she has heavy periods as a source of ongoing blood loss. She has required transfusions but is not taking oral replacement. I have given her a prescription for ferrous gluconate. She will take 1 pill daily. If she is absorbing iron adequately and not having excessive ongoing blood losses, her hemoglobin should be improving. She will return to clinic in about 6 weeks for follow-up. If she does not tolerate oral iron or fails to respond, she knew may need IV treatment. (1) Anemia Qualifiers: Anemia type: iron deficiency Iron deficiency anemia type: unspecified iron deficiency Qualified Code(s): D50.9 - Iron deficiency anemia, unspecified
--- NOTE | 2019-06-21 14:07 | ONC.SCHED ---
Called patient per Estephania to get her in with Dr. Cary but [place] was at the airport and said she would call back.
[2019-06-27 14:40] VITALS: BP 135/88; PULSE 68; RESP 18; TEMP 36.9; O2SAT 97
--- NOTE | 2019-06-27 15:10 | P.PNONC_ITS ---
PN -Subjective Interval history: Diagnosis: Iron deficiency anemia Interval history: The patient is a 44-year-old woman who returns today for follow-up. She was seen here last about a month ago. Since then, she has been taking ferrous gluconate 1 tablet orally twice a day. She has had some abdominal pain and occasional nausea with this. She has not noticed any constipation. She has not really felt any better since starting the iron. She notes her strength and energy level have been stable but low. She has occasional lightheadedness and dizziness. She has some dyspnea on exertion but no chest pain. She denies any unusual bleeding or bruising but does have long period site. She denies any other changes in her health. - Patient Self-Reported Symptoms SR eye issues: Vision changes SR Cardiovascular issues: Dizzy/lightheaded SR Gastrointestinal issues: Constipation, Abdominal pain SR Neuro issues: Lightheaded/dizzy Home Medications and Allergies Home Medications Medication Instructions Recorded Confirmed Type glucometer #1 ea 11/17/18 06/27/19 Rx miscellaneous medical supply #1 each 11/17/18 06/27/19 Rx hydrochlorothiazide 25 mg tablet 25 mg PO DAILY #90 tab 04/25/19 06/27/19 Rx lisinopril 40 mg tablet 40 mg PO DAILY #90 tab 04/25/19 06/27/19 Rx ondansetron 4 mg disintegrating 4 mg PO TID-QID PRN #10 tab 04/25/19 06/27/19 Rx tablet sennosides 8.6 mg tablet 17.2 mg PO DAILY #90 tab 04/25/19 06/27/19 Rx ferrous gluconate 324 mg PO DAILY #30 tab 05/17/19 06/27/19 Rx lancets #360 each 06/13/19 06/27/19 Rx test strips #360 each 06/13/19 06/27/19 Rx blood-glucose meter See Rx Instructions .ROUTE 06/15/19 06/27/19 Rx .COMPLEX #1 each Allergies Allergy/AdvReac Type Severity Reaction Status Date / Time hydrocodone [HYDROCODONE] Allergy Mild ITCHING Verified 04/25/19 09:33 Exam Vital signs: Vital Signs Temp Pulse Resp BP Pulse Ox 06/27/19 14:40 98.5 F 68 18 135/88 97 Intake and Output 06/26/19 06/27/19 06/27/19 23:59 07:59 15:59 Other: Weight 92.5 kg Patient Weight 06/27/19 23:59 Weight 92.5 kg - Constitutional positive no acute distress, positive average body habitus - Routine HEENT Exam Head: Present: normocephalic, atraumatic Eye: Present: EOMI, PERRL. Absent: conjunctival icterus - Routine Respiratory Exam Present: Clear to auscultation bilaterally. Absent: rales, wheezes - Routine Cardiovascular Exam Present: RRR, S1, S2. Absent: murmur - Routine Abdominal Exam Present: soft, normoactive bowel sounds. Absent: tenderness - Routine Extremities Exam Absent: cyanosis, clubbing, edema - Routine Neurological Exam Present: alert, oriented X3 - Routine Psychiatric Exam Present: normal affect, normal thought process Results - Labs On June 15, her white count was 4.0 hemoglobin 7.8 hematocrit 25.9 with an MCV of 76 and platelets [id number]. - Imaging Additional studies: Procedures Injection of tranquilizer (02/23/14) Injection or infusion of other therapeutic or prophylactic substance (08/13/14) Assessment and Plan (1) Anemia Onset Date: Unknown Current visit: No Status: Acute 44-year-old woman with a history of iron deficiency anemia. She does not appear to be responding to oral iron replacement. We will plan on treating her with IV iron as soon as can be practically arranged. She will return to clinic in about 2 months for follow-up. (1) Anemia Qualifiers: Anemia type: iron deficiency Iron deficiency anemia type: unspecified iron deficiency Qualified Code(s): D50.9 - Iron deficiency anemia, unspecified
[2019-07-18] MEDS: IRON SUCROSE 300 MG in SODIUM CHLORIDE 0.9% 100 ML 115 ML IV (09:56)
[2019-07-18 10:36] VITALS: BP 155/95; PULSE 76; RESP 16; TEMP 36.6; O2SAT 99
--- NOTE | 2019-08-22 10:54 | ONC.SCHED ---
patient 2nd no show today/left voice mail for her to call and reschedule
== END ==
PROVIDERS: PCP Nurse Practitioner Family
DX: D50.9 Iron deficiency anemia, unspecified (principal)
CPT/HCPCS: 96365; 96366; 99204; 99213; 99214; J1756

== ENCOUNTER → 2019-10-19 14:46 | Outpatient (CLI) | payer OTHER, MEDICAID, SELFPAY ==
[2019-10-19 15:45] LABS: Add Manual Diff / Slide Review NO; Basophils Absolute Auto 0 /uL (0-100); Basophils Percent Auto 0.8 % (0-2); Eosinophils Absolute Auto 100 /uL (0-450); Eosinophils Percent Auto 2.1 % (2-4); Hematocrit 33.7 % (36-46); Lymphocytes Absolute Auto 1800 /uL (1100-4500); Lymphocytes Percent Auto 31.9 % (25-40); Mean Corpuscular HGB Conc 32.5 % (30-36); Mean Corpuscular Hemoglobin 28.2 PG (26-34); Mean Corpuscular Volume 86.7 fL (80-100); Monocytes Absolute Auto 400 /uL (0-900); Monocytes Percent Auto 6.2 % (3-14); Neutrophils Absolute Auto 3400 /uL (1500-7000); Platelet Count 274 X10^3/uL (150-400); Red Blood Cell Count 3.89 X10^6/uL (4.0-5.2); Red Cell Distribution Width 15.1 % (11.6-14.8); White Blood Cell Count 5.8 X10^3/uL (4.5-11.0)
[2019-10-19 15:53] LABS: Hemoglobin A1C% w Est Avg Glu 5.2 % (4.0-6.0)
[2019-10-19 16:03] LABS: Alanine Aminotransferase 10 IU/L (<35); Albumin 4.3 g/dL (3.5-5.0); Albumin Globulin Ratio 1.2 (1.0-2.8); Alkaline Phosphatase 54 U/L (38-126); Aspartate Aminotransferase 24 IU/L (14-36); BUN Creatinine Ratio 11.3 (6-22); Bilirubin Total 0.4 mg/dL (0.2-1.3); Blood Urea Nitrogen 17 mg/dL (7-17); Calcium 9.4 mg/dL (8.4-10.2); Carbon Dioxide 30 mmol/L (22-32); Chloride 103 mmol/L (98-107); Estimated Glomerular Filt Rate 37.7 mL/min (>60); Globulin 3.5 g/dL (1.7-4.1); Glucose 96 mg/dL (70-100); HEMOLYSIS < 15 (0-50); Potassium 3.9 mmol/L (3.4-5.1); Sodium 140 mmol/L (137-145); Total Protein 7.8 g/dL (6.3-8.2)
[2019-10-19 16:32] LABS: HEMOLYSIS < 15 (0-50); Iron 83 ug/dL (37-170)
[2019-10-19 16:37] LABS: Ferritin 9.1 ng/mL (6.27-137)
[2019-10-19 16:43] LABS: Percent Iron Saturation 21 % (15-50); Total Iron Binding Capacity 395 ug/dL (265-497); Transferrin 317 mg/dL (206-381)
[2019-10-25 12:39] LABS: Estrogen 548.1 pg/mL
== END ==
PROVIDERS: PCP Nurse Practitioner Family; Visit Provider Nurse Practitioner Family
DX: E11.9 Type 2 diabetes mellitus without complications (principal); D50.9 Iron deficiency anemia, unspecified; R23.2 Flushing
CPT/HCPCS: 36415; 80053; 82672; 82728; 83001; 83002; 83036; 83540; 83550; 85025; 85045

== ENCOUNTER → 2019-10-26 10:51 | Outpatient (CLI) | payer OTHER, MEDICAID, SELFPAY ==
[2019-10-26 11:52] LABS: BUN Creatinine Ratio 19.3 (6-22); Blood Urea Nitrogen 27 mg/dL (7-17); Estimated Glomerular Filt Rate 40.8 mL/min (>60)
== END ==
PROVIDERS: PCP Nurse Practitioner Family; Referring Provider Nurse Practitioner Family; Visit Provider Nurse Practitioner Family
DX: R79.89 Other specified abnormal findings of blood chemistry (principal)
CPT/HCPCS: 36415; 82565; 84520